=== PATIENT | female | born 1995 | race Caucasian/White ===

== ENCOUNTER 2022-09-29 09:47 | Emergency (ER) | payer BC, SELFPAY ==
--- NOTE | 2022-09-29 10:02 | ED.URI ---
HPI - URI/Sore Throat General Chief Complaint: Upper Respiratory Infection Stated Complaint: sore throat cough runny nose Time Seen by Provider: 09/29/22 10:02 Source: patient and RN notes reviewed History of Present Illness HPI Narrative: patient is a 26-year-old female presents to the Urgent Care complaints of sore throat, cough and runny nose. States the sore throat started on Tuesday and the cough and runny nose started off Tuesday. Patient states it is worse at night and has been improving with Mucinex DM. Denies of any fever, nausea, vomiting or ill exposures. No other acute complaints. No acute distress noted. Patient aware of the plan of care. Some parts of this dictation were generated by voice recognition software and may contain typographical and/or grammatical inaccuracies. Related Data Home Medications Medication Instructions Recorded Confirmed phentermine 30 mg capsule 30 mg PO DAILY 09/29/22 09/29/22 Allergies Allergy/AdvReac Type Severity Reaction Status Date / Time No Known Allergies Allergy Verified 09/29/22 10:21 Review of Systems Review of Systems: CONSTITUTIONAL: Denies fever, chills, or sweats. EYES: Denies visual changes, redness, or discharge. ENT: Reports a sore throat and rhinorrhea CARDIOVASCULAR: Denies chest pain, palpitations, or edema. RESPIRATORY: reports of cough without dyspnea GASTROINTESTINAL: Denies abdominal pain, nausea, vomiting, or diarrhea. GENITOURINARY: Denies dysuria or hematuria. SKIN: Denies rash or itching. MUSCULOSKELETAL: Denies back pain, joint pain, or myalgia. NEUROLOGIC: Denies headache, numbness, or weakness. All other systems reviewed are negative, except as documented in HPI. PMFSH Comments At the time of my signature, I reviewed and agree with the nursing past medical, surgical, social, and family history. There is no relevant family history pertinent to the patient complaint. Exam Narrative: GENERAL: This is a well-nourished, well-developed patient, in no apparent distress. HEAD: normocephalic, atraumatic. EYES: PERRL. Sclera clear/white. Vision is grossly intact. EARS: External ears normal, auditory canals clear and without drainage, TMs normal without perforation. Hearing grossly intact. NOSE: External nose normal with no obvious nasal discharge, nares without redness, no rhinorrhea. THROAT: Mucous membranes moist, posterior pharynx clear. mild erythema noted to posterior oropharynx. NECK: Neck supple, non-tender without lymphadenopathy CARDIOVASCULAR: Regular rate and rhythm without murmurs, gallops, or rubs. RESPIRATORY: Clear to auscultation. Breath sounds equal bilaterally. No wheezes, rales, or rhonchi. SKIN: warm, intact with no suspicious lesions or rash, good texture and turgor. NEURO: awake, alert, and oriented to person, place and time. There were no obvious focal neurologic abnormalities. EXTREMITIES: No clubbing, cyanosis, or edema. Course Course Level of Care: Express Care Visit Vital Signs Vital signs: Vital Signs Temperature 98 F 09/29/22 10:11 Pulse Rate 100 09/29/22 10:11 Respiratory Rate 18 09/29/22 10:11 Blood Pressure 144/80 H 09/29/22 10:11 Pulse Oximetry 98 09/29/22 10:11 Oxygen Delivery Room Air 09/29/22 10:11 Temperature 98 F 09/29/22 10:11 Pulse Rate 100 09/29/22 10:11 Respiratory Rate 18 09/29/22 10:11 Blood Pressure 144/80 H 09/29/22 10:11 Pulse Oximetry 98 09/29/22 10:11 Oxygen Delivery Room Air 09/29/22 10:11 Reviewed- Patient is informed that they may have pre-hypertension or hypertension based on a blood pressure reading in the department. I recommend the patient call the primary care provider listed on their discharge instructions or a physician of their choice this week to arrange follow-up for further evaluation of possible pre-hypertension or hypertension. MDM - URI/Sore Throat MDM Narrative Medical decision making narrative: reviewed lab results with
[2022-09-29 10:11] VITALS: BP 144/80; PULSE 100; RESP 18; TEMP 36.6; O2SAT 98
== END 2022-09-29 10:40 | disposition home or self-care (01) ==
PROVIDERS: Emergency Provider Nurse Practitioner Family; PCP Internal Medicine
DX: J02.9 Acute pharyngitis, unspecified (principal)
CPT/HCPCS: 87081; 87880; 99213; G0463